=== PATIENT | female | born 1945 | race Caucasian/White ===

== ENCOUNTER 2017-04-22 07:46 | Day surgery (SDC) | payer MEDICARE, OTHER ==
[~2017-04-22 07:46] MED LIST: CHONDR SU A NA/HYALUR INTRAOC KIT (SURGICARE) ONE; EPINEPHRINE INJ/PF 1 MG/1 ML AMPULE ONE; KETOROLAC TROMETHAMINE 0.45% 4 DROP/0.4 ML DROPERETTE OS PRN; LIDOCAINE 1% INJ-PF (10 MG/ML) 30 ML SDV ONE
[2017-04-22] MEDS ORDERED: MIDAZOLAM 2 MG/2 ML INJ ONE ×2 (08:07→08:57)
[2017-04-22] MEDS ORDERED: FENTANYL CITRATE INJ/PF 100 MCG/2 ML AMPUL ONE ×2 (08:07→08:57)
[2017-04-22] MEDS: TETRACAINE HCL 0.5% OPH SOLN 2 ML OS PRN ×3 (08:18→08:59)
[2017-04-22] MEDS: TROPICAMIDE 1% OPH SOLN 3 ML OS PRN ×3 (08:19→08:43)
[2017-04-22] MEDS: CYCLOPENTOLATE 0.2%/PHENYLEPHRINE 1% OPH SOLN 2 ML OS PRN ×3 (08:19→08:43)
[2017-04-22] MEDS: BESIFLOXACIN HCL 0.6% OPH SUSP 5 ML BOTTLE OS PRN ×3 (08:20→09:20)
[2017-04-22] MEDS ORDERED: KETOROLAC TROMETHAMINE 0.45% 4 DROP/0.4 ML DROPERETTE OS ONE (10:00)
--- NOTE | 2017-04-22 18:57 | [facility] OPERATIVE REPORT E ---
[facility] Operative Report NAME: DIEGO CONSTANTINO AGE: 72Y DATE OF SURGERY: 04/22/2017 ROOM: PREOPERATIVE DIAGNOSIS: Cataract, right eye. POSTOPERATIVE DIAGNOSIS: Cataract, right eye. OPERATION: Cataract extraction with intraocular lens implant of the right eye. SURGEON: BRAYAN REYNA M.D. ANESTHESIA: Topical. PROCEDURE: After obtaining appropriate consent, the patient's right eye was prepped and draped in sterile fashion as well as the surgeon in a sterile manner and cataract surgery was started. First a paracentesis blade was used to make a small side-port incision. Viscoelastic was used to inflate the anterior chamber. Next a 2.4 mm incision was made with the paracentesis blade. A continuous capsulorrhexis incision was made using a cystotome and Utrata forceps. Following this hydrodissection was carried out to make the lens fully loose and mobile and it was rotated 90 degrees. Following this, a gcokiw-aco-uhmqfqz technique was used to phacoemulsify the lens with a CDE of 21.39. The remaining cortex was removed with irrigation/aspiration. Provisc was instilled into the capsular bag to inflate the bag. A SN60WF, 24.0 diopter lens was placed. The remaining viscoelastic material was removed with irrigation/aspiration. Following this, a 10-0 nylon suture was used to close the incision and it was found to be watertight. Vigamox was instilled in the eye and a protective shield was placed over the eye. The patient returned to the postoperative recovery in stable condition. DICTATING PHYSICIAN: BRAYAN REYNA M.D. [id number] PHY#: [id number] ID: [id number] JOB#: [id number] ACCT: [id number] cc:BRAYAN REYNA M.D. >
--- NOTE | 2017-04-22 19:02 | [facility] DISCHARGE SUMMARY E ---
[facility] Discharge Summary NAME: DIEGO CONSTANTINO AGE: 72Y ADMITTED: 04/22/2017 DISCHARGED: 04/22/2017 HISTORY OF PRESENT ILLNESS AND HOSPITAL COURSE: This is a 72-year-old female who underwent cataract extraction of the left eye. DIAGNOSIS: Cataract, left eye. HOSPITAL COURSE: She underwent surgery because she was having difficulty seeing words on the TV. DISCHARGE INSTRUCTIONS: 1. She should be on a regular diet. 2. No bending at her waist and no heavy lifting. 3. She should use Besivance, Ilevro, and Durezol at 3 p.m. and 8 p.m. and sleep with a rigid shield. 4. I will see her for her 1-day postoperative tomorrow. DICTATING PHYSICIAN: BRAYAN REYNA M.D. [id number] PHY#: [id number] ID: [id number] JOB#: [id number] ACCT: [id number] cc:BRAYAN REYNA M.D. >
== END 2017-04-22 10:20 | disposition home or self-care (01) ==
LOC: SC 07:46
PROVIDERS: ATTEND Internal Medicine
PROC: 08RJ3JZ Replacement of Right Lens with Synthetic Substitute, Percutaneous Approach (ICD-10-PCS; principal; 2017-04-22 09:00)
DX: H25.13 Age-related nuclear cataract, bilateral (principal); I10 Essential (primary) hypertension; E11.9 Type 2 diabetes mellitus without complications; E78.00 Pure hypercholesterolemia, unspecified; M19.90 Unspecified osteoarthritis, unspecified site; G47.30 Sleep apnea, unspecified; K21.9 Gastro-esophageal reflux disease without esophagitis; Z87.891 Personal history of nicotine dependence; I25.2 Old myocardial infarction; Z88.5 Allergy status to narcotic agent; Z88.8 Allergy status to other drugs, medicaments and biological substances; Z79.82 Long term (current) use of aspirin; Z79.899 Other long term (current) drug therapy
CPT/HCPCS: 66984; 82962; V2632; J2250; J3490 ×2; A9270; J0171; J3010; 142

== ENCOUNTER 2017-05-13 08:14 | Day surgery (SDC) | payer MEDICARE, OTHER ==
[~2017-05-13 08:14] MED LIST changes: -CHONDR SU A NA/HYALUR INTRAOC KIT (SURGICARE) ONE; -EPINEPHRINE INJ/PF 1 MG/1 ML AMPULE ONE; +KETOROLAC TROMETHAMINE 0.45% 4 DROP/0.4 ML DROPERETTE OD PRN; -KETOROLAC TROMETHAMINE 0.45% 4 DROP/0.4 ML DROPERETTE OS PRN; -LIDOCAINE 1% INJ-PF (10 MG/ML) 30 ML SDV ONE
[2017-05-13] MEDS: TROPICAMIDE 1% OPH SOLN 3 ML OD PRN ×3 (08:37→08:57)
[2017-05-13] MEDS: BESIFLOXACIN HCL 0.6% OPH SUSP 5 ML BOTTLE OD PRN ×4 (08:37→09:41)
[2017-05-13] MEDS: CYCLOPENTOLATE 0.2%/PHENYLEPHRINE 1% OPH SOLN 2 ML OD PRN ×3 (08:37→08:57)
[2017-05-13] MEDS: TETRACAINE HCL 0.5% OPH SOLN 2 ML OD PRN ×3 (08:38→09:14)
[2017-05-13] MEDS ORDERED: LIDOCAINE 1% INJ-PF (10 MG/ML) 30 ML SDV ONE (08:42)
[2017-05-13] MEDS ORDERED: CHONDR SU A NA/HYALUR INTRAOC KIT (SURGICARE) ONE (08:42)
[2017-05-13] MEDS ORDERED: EPINEPHRINE INJ/PF 1 MG/1 ML AMPULE ONE (08:42)
[2017-05-13] MEDS ORDERED: ONDANSETRON HCL INJ/PF 4 MG/2 ML SDV ONE (09:05)
[2017-05-13] MEDS ORDERED: MIDAZOLAM 2 MG/2 ML INJ ONE (09:05)
--- NOTE | 2017-05-16 20:22 | [facility] OPERATIVE REPORT E ---
[facility] Operative Report NAME: DIEGO CONSTANTINO AGE: 72Y DATE OF SURGERY: 05/13/2017 ROOM: PREOPERATIVE DIAGNOSIS: CATARACT, RIGHT EYE. POSTOPERATIVE DIAGNOSIS: CATARACT, RIGHT EYE. OPERATION: Cataract extraction with intraocular lens implant of the right eye. SURGEON: BRAYAN REYNA M.D. ANESTHESIA: Topical. PROCEDURE: After obtaining appropriate consent, the patient's right eye was prepped and draped in sterile fashion as well as the surgeon in a sterile manner and cataract surgery was started. First a paracentesis blade was used to make a small side-port incision. Viscoelastic was used to inflate the anterior chamber. Next a 2.4 mm incision was made with the paracentesis blade. A continuous capsulorrhexis incision was made using a cystotome and Utrata forceps. Following this hydrodissection was carried out to make the lens fully loose and mobile and it was rotated 90 degrees. Following this, a xgkwrs-wwa-eyibntq technique was used to phacoemulsify the lens with a CDE of *------*. The remaining cortex was removed with irrigation/aspiration. Provisc was instilled into the capsular bag to inflate the bag. A SN60WF, 24.0 diopter lens was placed. The remaining viscoelastic material was removed with irrigation/aspiration. Following this, a 10-0 nylon suture was used to close the incision and it was found to be watertight. Vigamox was instilled in the eye and a protective shield was placed over the eye. The patient returned to the postoperative recovery in stable condition. DICTATING PHYSICIAN: BRAYAN REYNA M.D. [id number] PHY#: [id number] ID: [id number] JOB#: [id number] ACCT: [id number] cc:BRAYAN REYNA M.D. >
--- NOTE | 2017-05-16 20:22 | DISCHARGE SUMMARY E ---
Discharge Summary NAME: DIEGO CONSTANTINO : 1945 AGE: 72Y ADMITTED: 05/13/2017 DISCHARGED: 05/13/2017 REASON FOR ADMISSION: This is a 72-year-old patient who underwent cataract extraction of the right eye. DIAGNOSIS: Cataract, right eye. HOSPITAL COURSE AND DISCHARGE INSTRUCTIONS: The patient underwent surgery because he was having difficulty seeing medicine bottles and words on the TV. He should be on a regular diet. No bending at his waist. No heavy lifting. He should use the Besivance, Ilevro, and Durezol at 3:00 p.m. at 8:00 p.m. and sleep with a rigid shield, and I will see him for his 1-day postoperative. DICTATING PHYSICIAN: BRAYAN REYNA M.D. [id number] PHY#: [id number] ID: [id number] JOB#: [id number] ACCT: [id number] cc:BRAYAN REYNA M.D. >
== END 2017-05-13 10:24 | disposition home or self-care (01) ==
LOC: SC 08:14
PROVIDERS: ATTEND Internal Medicine
PROC: 08RJ3JZ Replacement of Right Lens with Synthetic Substitute, Percutaneous Approach (ICD-10-PCS; principal; 2017-05-13 09:30)
DX: H25.11 Age-related nuclear cataract, right eye (principal)
CPT/HCPCS: 66984; 82962; V2632; J2250; J3490 ×2; A9270; J0171; J2405; 142

== ENCOUNTER 2017-06-28 15:19 | Emergency (ER) | payer MEDICARE, OTHER ==
[2017-06-28] MEDS ORDERED: ACETAMINOPHEN 325 MG TABLET PO ONE (16:55)
--- NOTE | 2017-06-28 16:56 | ER Document Report ---
ED Medical Screen (RME) - General Chief Complaint: Cold Symptoms Stated Complaint: COLD Time Seen by Provider: 06/28/17 16:52 Mode of Arrival: Ambulatory Information source: Patient Notes: 72-year-old female presents to ED for plan of cough congestion sore throat fever of 100.1 in the ED. She is a former smoker she is. She has an extensive long and cardiac history to include CABGs 2 within the last year. Her lungs are diminished but clear. Patient is able to speak in full sentences. I have greeted and performed a rapid initial assessment of this patient. A comprehensive ED assessment and evaluation of the patient, analysis of test results and completion of medical decision making process will be conducted by an additional ED providers. TRAVEL OUTSIDE OF THE [place] IN LAST 30 DAYS: No - Related Data Allergies/Adverse Reactions: codeine [Codeine] Allergy (Verified 06/28/17 16:51) VOMITING dexlansoprazole [From Dexilant] Allergy (Verified 06/28/17 16:51) Facial swelling Shellfish * [Shellfish] Allergy (Verified 06/28/17 16:51) Swelling of hands and/or feet Wxtmppn-Fdo-Spl Reductase Inhibitor Allergy (Verified 06/28/17 16:51) Stiffness in joints clopidogrel [From Plavix] Adverse Reaction (Intermediate, Verified 06/28/17 16: 51) LETHARGIC lisinopril Adverse Reaction (Verified 06/28/17 16:51) nateglinide [From Starlix] Adverse Reaction (Verified 06/28/17 16:51) VOMITING Past Medical History - Social History Chew tobacco use (# tins/day): No Frequency of alcohol use: None Drug Abuse: None - Past Medical History Cardiac Medical History: Reports: Hx Heart Attack - 2016, Hx Hypercholesterolemia, Hx Hypertension Pulmonary Medical History: Denies: Hx Asthma Neurological Medical History: Denies: Hx Cerebrovascular Accident, Hx Seizures Renal/ Medical History: Reports: Hx Kidney Stones. Denies: Hx Peritoneal Dialysis GI Medical History: Reports: Hx Gastroesophageal Reflux Disease, Hx Hiatal Hernia. Denies: Hx Hepatitis, Hx Ulcer Infectious Medical History: Denies: Hx Hepatitis Past Surgical History: Reports: Hx Appendectomy, Hx Cholecystectomy, Hx Genitourinary Surgery - Prolapsed bladder, Hx Open Heart Surgery - 2016, Hx Tonsillectomy, Hx Tubal Ligation. Denies: Hx Mastectomy, Hx Pacemaker - Immunizations Hx Diphtheria, Pertussis, Tetanus Vaccination: No - Pt unsure Physical Exam - Vital signs Vitals: Temp Pulse Resp BP Pulse Ox 100.1 F 85 18 196/75 H 96 06/28/17 15:37 06/28/17 15:37 06/28/17 15:37 06/28/17 15:37 06/28/17 15:37 Course - Vital Signs Vital signs: Temp Pulse Resp BP Pulse Ox 100.1 F 85 18 196/75 H 96 06/28/17 15:37 06/28/17 15:37 06/28/17 15:37 06/28/17 15:37 06/28/17 15:37
--- NOTE | 2017-06-28 17:27 | RADIOLOGY REPORT (SQ) ---
EXAM DESCRIPTION: CHEST PA/LAT COMPLETED DATE/TIME: 06/28/2017 5:16 pm REASON FOR STUDY: Cough congestion and fever COMPARISON: 09/06/2015 EXAM PARAMETERS: NUMBER OF VIEWS: two views TECHNIQUE: Digital Frontal and Lateral radiographic views of the chest acquired. RADIATION DOSE: NA LIMITATIONS: none FINDINGS: LUNGS AND PLEURA: No opacities, masses or pneumothorax. No pleural effusion. MEDIASTINUM AND HILAR STRUCTURES: No masses or contour abnormalities. HEART AND VASCULAR STRUCTURES: Heart normal size. No evidence for failure. BONES: No acute findings. HARDWARE: Sternotomy wires, graft markers. OTHER: No other significant finding. IMPRESSION: NO SIGNIFICANT RADIOGRAPHIC FINDING IN THE CHEST. TECHNICAL DOCUMENTATION: JOB ID: [id number] [employer]- All Rights Reserved
[2017-06-28 19:36] LABS: ANION GAP 19 (5-19); BLOOD UREA NITROGEN 18 mg/dL (7-20); CALCIUM 9.5 mg/dL (8.4-10.2); CARBON DIOXIDE 16 mmol/L (22-30); CHLORIDE 103 mmol/L (98-107); CREATININE RESULT 1.11 mg/dL (0.52-1.25); GLUCOSE 139 mg/dL (75-110); POTASSIUM 4.4 mmol/L (3.6-5.0); SODIUM 137.6 mmol/L (137-145)
[2017-06-28] MEDS ORDERED: NORMAL SALINE 1000 ML 1,000 ML IV ONE (19:47)
[2017-06-28] MEDS ORDERED: KETOROLAC TROMETHAMINE INJ/PF 30 MG/1 ML SDV IV ONE (19:48)
[2017-06-28] MEDS ORDERED: METOCLOPRAMIDE HCL INJ/PF 10 MG/2 ML SDV IV ONE (19:48)
--- NOTE | 2017-06-28 19:51 | ER Document Report ---
ED General - General Chief Complaint: Cold Symptoms Stated Complaint: COLD Time Seen by Provider: 06/28/17 16:52 Mode of Arrival: Ambulatory Notes: Patient is a 72-year-old female who presents with 3 days of cough, sinus pressure, body aches, headache, and fever. Patient is here with her who is the same symptoms. Patient reports that she has been trying over-the- counter remedies without any significant improvement. Nothing is noted to worsen her symptoms. She has not seen a primary care doctor regarding today's concerns. She denies a recent history of similar symptoms. She did receive her influenza vaccination this year. She has not had any vomiting but notes that she has had some loose stools. She denies any chest pain, shortness of breath, focal abdominal pain or vomiting. No dysuria. TRAVEL OUTSIDE OF THE [place] IN LAST 30 DAYS: No - Related Data Allergies/Adverse Reactions: codeine [Codeine] Allergy (Verified 06/28/17 16:51) VOMITING dexlansoprazole [From Dexilant] Allergy (Verified 06/28/17 16:51) Facial swelling Shellfish * [Shellfish] Allergy (Verified 06/28/17 16:51) Swelling of hands and/or feet Ypmovgr-Gyo-Prt Reductase Inhibitor Allergy (Verified 06/28/17 16:51) Stiffness in joints clopidogrel [From Plavix] Adverse Reaction (Intermediate, Verified 06/28/17 16: 51) LETHARGIC lisinopril Adverse Reaction (Verified 06/28/17 16:51) nateglinide [From Starlix] Adverse Reaction (Verified 06/28/17 16:51) VOMITING Past Medical History - General Information source: Patient - Social History Smoking Status: Former Smoker Chew tobacco use (# tins/day): No Frequency of alcohol use: None Drug Abuse: None Lives with: Spouse/Significant other Family History: Reviewed & Not Pertinent Patient has suicidal ideation: No Patient has homicidal ideation: No - Past Medical History Cardiac Medical History: Reports: Hx Heart Attack - 2016, Hx Hypercholesterolemia, Hx Hypertension Pulmonary Medical History: Denies: Hx Asthma Neurological Medical History: Denies: Hx Cerebrovascular Accident, Hx Seizures Renal/ Medical History: Reports: Hx Kidney Stones. Denies: Hx Peritoneal Dialysis GI Medical History: Reports: Hx Gastroesophageal Reflux Disease, Hx Hiatal Hernia. Denies: Hx Hepatitis, Hx Ulcer Infectious Medical History: Denies: Hx Hepatitis Past Surgical History: Reports: Hx Appendectomy, Hx Cholecystectomy, Hx Genitourinary Surgery - Prolapsed bladder, Hx Open Heart Surgery - 2016, Hx Tonsillectomy, Hx Tubal Ligation. Denies: Hx Mastectomy, Hx Pacemaker - Immunizations Hx Diphtheria, Pertussis, Tetanus Vaccination: No - Pt unsure Hx Pneumococcal Vaccination: 07/26/14 Review of Systems - Review of Systems Notes: Constitutional: Positive for fever. HENT: Negative for sore throat. Eyes: Negative for visual changes. Cardiovascular: Negative for chest pain. Respiratory: Negative for shortness of breath. Positive for cough Gastrointestinal: Positive for diarrhea Genitourinary: Negative for dysuria. Musculoskeletal: Negative for back pain. Skin: Negative for rash. Neurological: Negative for headaches, weakness or numbness. 10 point ROS negative except as marked above and in HPI. Physical Exam - Vital signs Vitals: Temp Pulse Resp BP Pulse Ox 100.1 F 85 18 196/75 H 96 06/28/17 15:37 06/28/17 15:37 06/28/17 15:37 06/28/17 15:37 06/28/17 15:37 Interpretation: Hypertensive Notes: PHYSICAL EXAMINATION: GENERAL: Well-appearing, well-nourished and in no acute distress. HEAD: Atraumatic, normocephalic. EYES: Pupils equal round and reactive to light, extraocular movements intact, sclera anicteric, conjunctiva are normal. ENT: nares patent, oropharynx clear without exudates. Moderately dry mucous membranes. NECK: Normal range of motion, supple without lymphadenopathy LUNGS: Breath sounds clear to auscultation bilaterally and equal. No wheezes rales or rhonchi. HEART: Regular rate and rhythm without murmurs ABDOMEN: Soft, nontender, normoactive bowel sounds. No guarding, no rebound. No masses appreciated. EXTREMITIES: Normal range of motion, no pitting or edema. No cyanosis. NEUROLOGICAL: No focal neurological deficits. Moves all extremities spontaneously and on command. PSYCH: Normal mood, normal affect. SKIN: Warm, Dry, normal turgor, no rashes or lesions noted. Course - Re-evaluation Re-evalutation: 06/28/17 19:49 Patient presents with cough, nausea, sinus pressure, and fever at home consistent with a diagnosis of influenza. Influenza testing is positive. Patient is overall well in appearance, in no acute distress. Lung sounds clear. Able to tolerate oral intake without difficulty here in the emergency department. After risks and benefits conversation with the patient regarding the use of Tamiflu, they have elected to use supportive care without Tamiflu based on concerns about lack of efficacy as well as the side effect profile. BMP did show a moderately decreased bicarb. Venous blood gas was obtained and did not demonstrate any evidence of an acidosis. Suspect this was secondary to dehydration and IV fluids have been administered. At this time will discharge with return precautions and follow-up recommendations. Verbal discharge instructions given a the bedside and opportunity for questions given. Medication warnings reviewed. Patient is in agreement with this plan and has verbalized understanding of return precautions and the need for primary care follow-up in the next 24-72 hours. 06/28/17 19:49 - Vital Signs Vital signs: Temp Pulse Resp BP Pulse Ox 99.4 F 85 18 137/61 H 94 06/28/17 21:02 06/28/17 15:37 06/28/17 15:37 06/28/17 21:01 06/28/17 21:02 - Laboratory Result Diagrams: 06/28/17 18:55 Laboratory results interpreted by me: 06/28/17 18:55 Carbon Dioxide 16 L Est GFR ( Amer) 58 L Est GFR (Non-Af Amer) 48 L Glucose 139 H - Diagnostic Test Radiology reviewed: Image reviewed, Reports reviewed Radiology results interpreted by me: 06/29/17 04:17 Chest x-ray: No acute infiltrate Discharge - Discharge Clinical Impression: Influenza A Condition: Good Disposition: HOME, SELF-CARE Additional Instructions: You have influenza. There is no treatment that is effective for this diagnosis other than supportive care at home. This includes drinking plenty of fluids, using Tylenol or ibuprofen as needed for fever and discomfort. Please follow closely with you primary care physician the next 1-2 days regarding this diagnosis. Return to the emergency department immediately if you began to have persistent vomiting prevents you from being able to keep fluids down for more than 12 hours, you pass out, you began having difficulty breathing, you become confused, or you have any other symptoms that are worrisome to you.
[2017-06-28 20:20] LABS: VENOUS BLOOD BASE EXCESS -4.7 mmol/L; VENOUS BLOOD HCO3 20.1 mmol/L (20-32); VENOUS BLOOD PCO2 36.6 mmHg (35-63); VENOUS BLOOD PH 7.36 (7.30-7.42)
[2017-06-28 21:13] VITALS: BP 137/61
== END 2017-06-28 21:13 | disposition home or self-care (01) ==
LOC: ER 15:19
DX: J09.X2 Influenza due to identified novel influenza A virus with other respiratory manifestations (principal); R05 Cough; M79.1 Myalgia; R51 Headache; R50.9 Fever, unspecified; Z87.891 Personal history of nicotine dependence; I25.2 Old myocardial infarction
CPT/HCPCS: 99283; 96361; 96374; 96375; 36415; 80048; 82803; 87804; 71020; A9270; J1885; J2765; J7030

== ENCOUNTER 2017-07-01 22:18 | Emergency (ER) | payer MEDICARE, OTHER ==
[2017-07-01 23:34] LABS: VENOUS BLOOD BASE EXCESS -4.5 mmol/L; VENOUS BLOOD HCO3 19.7 mmol/L (20-32); VENOUS BLOOD PCO2 33.8 mmHg (35-63); VENOUS BLOOD PH 7.38 (7.30-7.42)
[2017-07-01 23:36] LABS: ABSOLUTE EOSINOPHILS # (AUTO) 0.1 10^3/uL (0.0-0.6); ABSOLUTE LYMPHOCYTES (AUTO) 1.1 10^3/uL (0.5-4.7); ABSOLUTE MONOCYTES (AUTO) 0.5 10^3/uL (0.1-1.4); ABSOLUTE NEUT (AUTO) 4.2 10^3/uL (1.7-8.2); BASOPHILS % (AUTO) 0.5 % (0-2); EOSINOPHILS % (AUTO) 1.1 % (0-6); HEMATOCRIT 38.2 % (36.0-47.0); HEMOGLOBIN 12.8 g/dL (12.0-15.5); HGB HCT DIFFERENCE 0.2; LYMPHOCYTES % (AUTO) 19.1 % (13-45); MEAN CORPUSCULAR HGB CONC 33.6 g/dL (32.0-36.0); MEAN CORPUSCULAR VOLUME 95 fl (80-97); MONOCYTES % (AUTO) 8.1 % (3-13); RED BLOOD COUNT 4.02 10^6/uL (3.72-5.28); RED CELL DISTRIBUTION WIDTH 14.9 % (11.5-14.0); SEGMENTED NEUTROPHILS % (AUTO) 71.2 % (42-78)
--- NOTE | 2017-07-01 23:36 | RADIOLOGY REPORT (SQ) ---
EXAM DESCRIPTION: CHEST PA/LAT CLINICAL HISTORY: 72 years, Female, short of breath COMPARISON: 06/28/2017. NUMBER OF VIEWS: Two TECHNIQUE: PA and lateral LIMITATIONS: None. FINDINGS: Mild hyperinflation, prominent interstitium, median sternotomy, normal cardiac silhouette size, upper abdominal clips, and intact bony thorax. IMPRESSION: No acute cardiopulmonary findings. 2011 [employer]- All Rights Reserved
[2017-07-01 23:52] LABS: ANION GAP 14 (5-19); BLOOD UREA NITROGEN 13 mg/dL (7-20); CALCIUM 9.2 mg/dL (8.4-10.2); CARBON DIOXIDE 19 mmol/L (22-30); CHLORIDE 109 mmol/L (98-107); CREATININE RESULT 1.01 mg/dL (0.52-1.25); GLUCOSE 111 mg/dL (75-110); POTASSIUM 4.2 mmol/L (3.6-5.0); SODIUM 141.6 mmol/L (137-145)
--- NOTE | 2017-07-02 00:29 | ER Document Report ---
ED General - General Chief Complaint: Shortness Of Breath Stated Complaint: DIFFICULTY BREATHING Time Seen by Provider: 07/01/17 22:53 Notes: Patient is a 72-year-old female who presents with ongoing cough, shortness of breath, nasal congestion and sinus pressure. I saw the patient 2 days ago and at that time she was positive for influenza A. She states that her symptoms are unchanged since that time. She was worried by the fact that she continues to feel quite fatigued, has a persistent cough and often feels short of breath. She denies any vomiting or ongoing diarrhea. No syncope. Notes that she continues to go to tolerate fluids without difficulty. She has not yet followed up with her primary care doctor. She continues to have fevers. She has been treating her symptoms with Tylenol and ibuprofen with some improvement. TRAVEL OUTSIDE OF THE [place] IN LAST 30 DAYS: No - Related Data Allergies/Adverse Reactions: atorvastatin [From Lipitor] Allergy (Verified 07/01/17 22:20) codeine [Codeine] Allergy (Verified 07/01/17 22:20) VOMITING dexlansoprazole [From Dexilant] Allergy (Verified 07/01/17 22:20) Facial swelling Shellfish * [Shellfish] Allergy (Verified 07/01/17 22:20) Swelling of hands and/or feet Ylsykae-Yru-Ojc Reductase Inhibitor Allergy (Verified 07/01/17 22:20) Stiffness in joints clopidogrel [From Plavix] Adverse Reaction (Intermediate, Verified 07/01/17 22: 20) LETHARGIC lisinopril Adverse Reaction (Verified 07/01/17 22:20) nateglinide [From Starlix] Adverse Reaction (Verified 07/01/17 22:20) VOMITING Past Medical History - General Information source: Patient - Social History Smoking Status: Former Smoker Chew tobacco use (# tins/day): No Frequency of alcohol use: None Drug Abuse: None Lives with: Family Family History: Reviewed & Not Pertinent Patient has suicidal ideation: No Patient has homicidal ideation: No - Past Medical History Cardiac Medical History: Reports: Hx Heart Attack - 2016, Hx Hypercholesterolemia, Hx Hypertension Pulmonary Medical History: Denies: Hx Asthma Neurological Medical History: Denies: Hx Cerebrovascular Accident, Hx Seizures Renal/ Medical History: Reports: Hx Kidney Stones. Denies: Hx Peritoneal Dialysis GI Medical History: Reports: Hx Gastroesophageal Reflux Disease, Hx Hiatal Hernia. Denies: Hx Hepatitis, Hx Ulcer Infectious Medical History: Denies: Hx Hepatitis Past Surgical History: Reports: Hx Appendectomy, Hx Cholecystectomy, Hx Genitourinary Surgery - Prolapsed bladder, Hx Open Heart Surgery - 2016, Hx Tonsillectomy, Hx Tubal Ligation. Denies: Hx Mastectomy, Hx Pacemaker - Immunizations Hx Diphtheria, Pertussis, Tetanus Vaccination: No - Pt unsure Hx Pneumococcal Vaccination: 07/26/14 Review of Systems - Review of Systems Notes: Constitutional: Positive for fever. HENT: Negative for sore throat. Eyes: Negative for visual changes. Cardiovascular: Negative for chest pain. Respiratory: Positive for cough and shortness of breath Gastrointestinal: Negative for abdominal pain, vomiting or diarrhea. Genitourinary: Negative for dysuria. Musculoskeletal: Negative for back pain. Skin: Negative for rash. Neurological: Negative for headaches, weakness or numbness. 10 point ROS negative except as marked above and in HPI. Physical Exam - Vital signs Vitals: Temp Pulse Resp BP 98.4 F 76 18 153/82 H 07/01/17 22:25 07/01/17 22:25 07/01/17 22:25 07/01/17 22:25 Interpretation: Hypertensive Notes: PHYSICAL EXAMINATION: GENERAL: Appears somewhat uncomfortable but in no distress. HEAD: Atraumatic, normocephalic. EYES: Pupils equal round and reactive to light, extraocular movements intact, sclera anicteric, conjunctiva are normal. ENT: nares patent, oropharynx clear without exudates. Moist mucous membranes. NECK: Normal range of motion, supple without lymphadenopathy LUNGS: Breath sounds clear to auscultation bilaterally and equal. Rhonchi in all lung quick HEART: Regular rate and rhythm without murmurs ABDOMEN: Soft, nontender, normoactive bowel sounds. No guarding, no rebound. No masses appreciated. EXTREMITIES: Normal range of motion, no pitting or edema. No cyanosis. NEUROLOGICAL: No focal neurological deficits. Moves all extremities spontaneously and on command. PSYCH: Normal mood, normal affect. SKIN: Warm, Dry, normal turgor, no rashes or lesions noted. Course - Re-evaluation Re-evalutation: 07/02/17 00:27 Patient presents with cough, vomiting, diarrhea, and fever at home consistent with a diagnosis of influenza. Patient was positive for influenza on the prior time that I evaluated her. Chest x-ray remains unremarkable. Patient is overall well in appearance, in no acute distress. Lungs with diffusely rhonchorous sounds but otherwise appropriate air movement. Able to tolerate oral intake without difficulty here in the emergency department. We have again discussed the option of Tamiflu and she has again declined given its lack of efficacy and risk of side effect profile. Patient has been ambulated on pulse oximeter saturations between 90 and 100%. She has tolerated oral intake without any difficulty. Repeat labs remain on concerning. At this time will discharge with return precautions and follow-up recommendations. Verbal discharge instructions given a the bedside and opportunity for questions given. Medication warnings reviewed. Patient is in agreement with this plan and has verbalized understanding of return precautions and the need for primary care follow-up in the next 24-72 hours. - Vital Signs Vital signs: Temp Pulse Resp BP Pulse Ox 98 F 76 23 H 175/70 H 95 07/02/17 00:01 07/01/17 22:25 07/02/17 00:01 07/02/17 00:01 07/02/17 00:01 - Laboratory Result Diagrams: 07/01/17 23:10 07/01/17 23:10 Laboratory results interpreted by me: 07/01/17 07/01/17 07/01/17 23:10 23:10 23:10 RDW 14.9 H VBG pCO2 33.8 L VBG HCO3 19.7 L Chloride 109 H Carbon Dioxide 19 L Est GFR (Non-Af Amer) 54 L Glucose 111 H - Diagnostic Test Radiology reviewed: Image reviewed, Reports reviewed Radiology results interpreted by me: 07/02/17 00:28 Chest x-ray: No acute infiltrate Discharge - Discharge Clinical Impression: Influenza, Shortness of breath Condition: Good Disposition: HOME, SELF-CARE Additional Instructions: You have influenza. There is no treatment that is effective for this diagnosis other than supportive care at home. This includes drinking plenty of fluids, using Tylenol or ibuprofen as needed for fever and discomfort. Please follow closely with you primary care physician the next 1-2 days regarding this diagnosis. Return to the emergency department immediately if you began to have persistent vomiting prevents you from being able to keep fluids down for more than 12 hours, you pass out, you began having difficulty breathing, you become confused, or you have any other symptoms that are worrisome to you. Referrals: KAYCEE SHIN PA-C [Primary Care Provider] - Follow up as needed
[2017-07-02 01:09] VITALS: BP 175/70
== END 2017-07-02 01:00 | disposition home or self-care (01) ==
LOC: ER 22:18
DX: J09.X2 Influenza due to identified novel influenza A virus with other respiratory manifestations (principal); R06.02 Shortness of breath; R05 Cough; R09.81 Nasal congestion; R51 Headache; R53.83 Other fatigue; Z87.891 Personal history of nicotine dependence; I25.2 Old myocardial infarction
CPT/HCPCS: 36415; 71020; 80048; 82803; 85025; 99285

== ENCOUNTER 2018-12-23 19:20 | Emergency (ER) | payer MEDICARE, OTHER ==
[2018-12-23] MEDS ORDERED: CETIRIZINE 10 MG TABLET PO ONE (20:36)
--- NOTE | 2018-12-23 20:44 | ER Document Report ---
HPI - HPI Time Seen by Provider: 12/23/18 20:28 Pain Level: 3 Context: Patient is a 73-year-old female who presents the emergency department with a chief complaint of a sore throat and a cough. She has had her cough for the past week. She also states that her ears hurt and it is hard for her to swallow, but she is able to swallow. She denies any fever. She states that she is coughing up some green mucus. She denies any shortness of breath, difficulty breathing, or hemoptysis. She has not seen her primary care provider in regards to this issue. Patient has diabetes, hypertension, and GERD. She currently takes aspirin, Glyxambi, metoprolol, multivitamin, omeprazole, hydrochlorothiazide, and a stool softener. - CONSTITUTIONAL Constitutional: DENIES: Fever, Chills - EENT EENT: REPORTS: Sore Throat, Ear Pain - Bilateral, Nasal Drainage-Clear, Congestion - NEURO Neurology: REPORTS: Headache. DENIES: Weakness - CARDIOVASCULAR Cardiovascular: DENIES: Chest pain - RESPIRATORY Respiratory: REPORTS: Coughing. DENIES: Trouble Breathing - GASTROINTESTINAL Gastrointestinal: DENIES: Abdominal Pain, Nausea, Patient vomiting, Diarrhea - REPRODUCTIVE Reproductive: DENIES: : - MUSCULOSKELETAL Musculoskeletal: DENIES: Extremity pain, Back Pain, Neck Pain, Swelling - DERM Skin Color: Normal Skin Problems: None Past Medical History - Social History Smoking Status: Never Smoker Family History: Reviewed & Not Pertinent - Past Medical History Cardiac Medical History: Reports: Hx Heart Attack - 2016, Hx Hypercholesterolemia, Hx Hypertension Pulmonary Medical History: Denies: Hx Asthma Neurological Medical History: Denies: Hx Cerebrovascular Accident, Hx Seizures Renal/ Medical History: Reports: Hx Kidney Stones. Denies: Hx Peritoneal Dialysis GI Medical History: Reports: Hx Gastroesophageal Reflux Disease, Hx Hiatal Hernia. Denies: Hx Hepatitis, Hx Ulcer Infectious Medical History: Denies: Hx Hepatitis Past Surgical History: Reports: Hx Appendectomy, Hx Cholecystectomy, Hx Genitou rinary Surgery - Prolapsed bladder, Hx Open Heart Surgery - 2016, Hx Tonsillectomy, Hx Tubal Ligation. Denies: Hx Mastectomy, Hx Pacemaker - Immunizations Hx Diphtheria, Pertussis, Tetanus Vaccination: No - Pt unsure Hx Pneumococcal Vaccination: 07/26/14 Vertical Provider Document - CONSTITUTIONAL Agree With Documented VS: Yes Exam Limitations: No Limitations General Appearance: No Apparent Distress - INFECTION CONTROL TRAVEL OUTSIDE OF THE [place] IN LAST 30 DAYS: No - HEENT HEENT: Atraumatic, Normocephalic, PERRLA, Pharyngeal Exudate, Pharyngeal Tenderness, Pharyngeal Erythema, Tympanic Membrane Red. negative: Conjuctival Injection, Tympanic Membrane Bulging - NECK Neck: Normal Inspection, Supple - RESPIRATORY Respiratory: Breath Sounds Normal, No Respiratory Distress, Chest Non-Tender - CARDIOVASCULAR Cardiovascular: Regular Rate, Regular Rhythm Pulses: Normal: Radial - GI/ABDOMEN Gastrointestinal: Abdomen Soft - MUSCULOSKELETAL/EXTREMETIES Musculoskeletal/Extremeties: FROM - NEURO Level of Consciousness: Awake, Alert, Appropriate - DERM Integumentary: Warm, Dry Course - Re-evaluation Re-evalutation: 12/23/18 20:44 Due to the patient's duration of her cough, she will be sent for a chest x-ray. 12/23/18 21:29 Patient's chest x-ray is negative for any acute findings. She does not have pneumonia. I have instructed the patient to take cetirizine daily. She states that she was on a nasal spray, but does not remember which nasal spray she was on. She was on Flonase for a little while, but her primary care provider took her off Flonase. I have advised her to follow-up with her primary care provider on Wednesday. I have also advised her to take cetirizine to help with her cough and congestion. I have also advised her to take Cepacol to help with her throat pain. Rapid strep is negative. It was sent for culture. She is in agreement with this plan. Verbal discharge instructions were given to the patient. They verbalized understanding. They are stable for discharge. - Vital Signs Vital signs: Temp Pulse Resp BP Pulse Ox 97.6 F 69 18 154/84 H 94 12/23/18 19:27 12/23/18 19:27 12/23/18 19:27 12/23/18 19:27 12/23/18 19:27 Discharge - Discharge Clinical Impression: Cough, Sore throat Condition: Stable Disposition: HOME, SELF-CARE Instructions: Sore Throat ([facility]) Additional Instructions: You were seen today in the emergency department for a cough and sore throat. Your chest x-ray was normal. The rapid strep test was negative. If the culture comes back positive, you will be called. Your symptoms are most consistent with an upper respiratory viral infection. Please take acetaminophen 1000 mg and ibuprofen 600 mg every 6 hours as needed for any body aches or fever. You have been given cetirizine, medication to help with your runny nose. Take 1 tablet every day while you have symptoms. Since your primary care does not want you on Flonase, please see if he can get the nasal spray you were on from them. You can use Cepacol or warm tea with honey to help with your sore throat. If you develop a fever greater than 100.4 F while on ibuprofen and acetaminophen, develop shortness of breath, difficulty breathing, or any symptoms that are worrisome to you, please return to the emergency department. Prescriptions: Cetirizine HCl [All Day Allergy] 10 mg PO DAILY #30 tablet Referrals: KAYCEE SHIN PA-C [Primary Care Provider] - 12/26/18
--- NOTE | 2018-12-23 21:11 | RADIOLOGY REPORT (SQ) ---
XR CHEST 2 VIEWS CLINICAL STATEMENT: cough x 1 week COMPARISON: 07/01/2017. FINDINGS: Status post median sternotomy. Cardiomediastinal silhouette is within normal limits. There is no focal lung consolidation or pleural effusion. No evidence of pulmonary edema or pneumothorax. IMPRESSION: No acute cardiopulmonary disease.
[2018-12-24 01:53] VITALS: BP 148/80
== END 2018-12-23 22:40 | disposition home or self-care (01) ==
LOC: ER 19:20
DX: J02.9 Acute pharyngitis, unspecified (principal); R05 Cough; R51 Headache; H92.03 Otalgia, bilateral; I10 Essential (primary) hypertension; K21.9 Gastro-esophageal reflux disease without esophagitis; E11.9 Type 2 diabetes mellitus without complications; Z79.84 Long term (current) use of oral hypoglycemic drugs; Z79.899 Other long term (current) drug therapy
CPT/HCPCS: 99283; 87070; 87880; 71046; A9270

== ENCOUNTER 2019-06-29 03:56 | Emergency (ER) | payer MEDICARE, OTHER ==
[2019-06-29 04:39] LABS: ABSOLUTE BASOPHILS # (AUTO) 0.1 10^3/uL (0.0-0.2); ABSOLUTE EOSINOPHILS # (AUTO) 0.2 10^3/uL (0.0-0.6); ABSOLUTE LYMPHOCYTES (AUTO) 1.9 10^3/uL (0.5-4.7); ABSOLUTE MONOCYTES (AUTO) 0.7 10^3/uL (0.1-1.4); ABSOLUTE NEUT (AUTO) 6.2 10^3/uL (1.7-8.2); BASOPHILS % (AUTO) 1.1 % (0-2); EOSINOPHILS % (AUTO) 2.3 % (0-6); HEMATOCRIT 42.1 % (36.0-47.0); HEMOGLOBIN 14.3 g/dL (12.0-15.5); LYMPHOCYTES % (AUTO) 20.7 % (13-45); MEAN CORPUSCULAR HEMOGLOBIN 32.3 pg (27.0-33.4); MEAN CORPUSCULAR VOLUME 95 fl (80-97); MONOCYTES % (AUTO) 7.3 % (3-13); PLATELET COUNT 270 10^3/uL (150-450); RED BLOOD COUNT 4.43 10^6/uL (3.72-5.28); RED CELL DISTRIBUTION WIDTH 13.8 % (11.5-14.0); SEGMENTED NEUTROPHILS % (AUTO) 68.6 % (42-78); TOTAL CELLS COUNTED % (AUTO) 100 %
[2019-06-29] MEDS ORDERED: ASPIRIN 81 MG TABLET, CHEWABLE PO ONE ×2 (04:45→04:58)
[2019-06-29] MEDS ORDERED: ONDANSETRON HCL INJ/PF 4 MG/2 ML SDV IV ONE (04:45)
--- NOTE | 2019-06-29 04:47 | ER Document Report ---
ED Medical Screen (RME) - General Chief Complaint: Chest Pain Stated Complaint: CHEST PAIN Time Seen by Provider: 06/29/19 04:41 Primary Care Provider: KAYCEE SHIN PA-C [Primary Care Provider] - Follow up as needed Notes: 74-year-old female with chief complaint of chest pain that started just prior to arrival while she was doing housework. Pain started in the center of her chest and radiated out to both arms. She states she felt a head mantilla and got nauseated. She reports current nausea, chest pain is almost resolved, denies abdominal pain, denies shortness of breath, denies fever. Past medical history includes CABG, follows with [facility] cardiology. TRAVEL OUTSIDE OF THE U[place] IN LAST 30 DAYS: No - Related Data Allergies/Adverse Reactions: atorvastatin [From Lipitor] Allergy (Verified 12/23/18 19:23) codeine [Codeine] Allergy (Verified 12/23/18 19:23) VOMITING dexlansoprazole [From Dexilant] Allergy (Verified 12/23/18 19:23) Facial swelling Shellfish * [Shellfish] Allergy (Verified 12/23/18 19:23) Swelling of hands and/or feet Qulgntd-Rpx-Mbe Reductase Inhibitor Allergy (Verified 12/23/18 19:23) Stiffness in joints clopidogrel [From Plavix] Adverse Reaction (Intermediate, Verified 12/23/18 19:23) LETHARGIC lisinopril Adverse Reaction (Verified 12/23/18 19:23) nateglinide [From Starlix] Adverse Reaction (Verified 12/23/18 19:23) VOMITING Past Medical History - Social History Frequency of alcohol use: None Drug Abuse: None - Past Medical History Cardiac Medical History: Reports: Hx Heart Attack - 2016, Hx Hypercholesterolemia, Hx Hypertension Pulmonary Medical History: Denies: Hx Asthma Neurological Medical History: Denies: Hx Cerebrovascular Accident, Hx Seizures Renal/ Medical History: Reports: Hx Kidney Stones. Denies: Hx Peritoneal Dialysis GI Medical History: Reports: Hx Gastroesophageal Reflux Disease, Hx Hiatal Hernia. Denies: Hx Hepatitis, Hx Ulcer Infectious Medical History: Denies: Hx Hepatitis Past Surgical History: Reports: Hx Appendectomy, Hx Cholecystectomy, Hx Genitourinary Surgery - Prolapsed bladder, Hx Open Heart Surgery - 2016, Hx Tonsillectomy, Hx Tubal Ligation. Denies: Hx Mastectomy, Hx Pacemaker - Immunizations Hx Diphtheria, Pertussis, Tetanus Vaccination: No - Pt unsure Physical Exam - Vital signs Vitals: Temp Pulse Resp BP Pulse Ox 98.6 F 66 25 H 173/72 H 95 06/29/19 03:56 06/29/19 03:56 06/29/19 03:56 06/29/19 03:56 06/29/19 03:56 - Cardiovascular Rhythm: Regular. No: Tachycardia Heart sounds: Normal auscultation, S1 appreciated, S2 appreciated - Abdominal Inspection: Normal Tenderness: Nontender Course - Re-evaluation Re-evalutation: I have greeted and performed a rapid initial assessment of this patient. A comprehensive ED assessment and evaluation of the patient, analysis of test results and completion of the medical decision making process will be conducted by additional ED providers. - Vital Signs Vital signs: Temp Pulse Resp BP Pulse Ox 98.6 F 66 27 H 173/72 H 95 06/29/19 03:56 06/29/19 03:56 06/29/19 04:25 06/29/19 04:25 06/29/19 04:25 - Laboratory Result Diagrams: 06/29/19 04:20 06/29/19 04:20 Doctor's Discharge - Discharge Referrals: KAYCEE SHIN PA-C [Primary Care Provider] - Follow up as needed
[2019-06-29 05:00] LABS: ALBUMIN 4.8 g/dL (3.5-5.0); ALKALINE PHOSPHATASE 117 U/L (38-126); ANION GAP 17 (5-19); ASPARTATE AMINO TRANSFERASE 28 U/L (14-36); BILIRUBIN,DIRECT 0.2 mg/dL (0.0-0.4); BILIRUBIN,TOTAL 0.4 mg/dL (0.2-1.3); BLOOD UREA NITROGEN 35 mg/dL (7-20); CALCIUM 10.4 mg/dL (8.4-10.2); CARBON DIOXIDE 21 mmol/L (22-30); CHLORIDE 102 mmol/L (98-107); CREATINE KINASE 41 U/L (30-135); GLUCOSE 236 mg/dL (75-110); POTASSIUM 3.8 mmol/L (3.6-5.0); TOTAL PROTEIN 8.9 g/dL (6.3-8.2)
[2019-06-29] MEDS ORDERED: LIDOCAINE 2% VISCOUS SOLN 20 ML UDCUP PO ONE (05:21)
[2019-06-29] MEDS ORDERED: MAG HYDROX/AL HYDROX/SIMETH SUSP 30 ML UDCUP PO ONE (05:21)
--- NOTE | 2019-06-29 05:56 | RADIOLOGY REPORT (SQ) ---
EXAM DESCRIPTION: XR CHEST 2 VIEWS COMPLETED DATE/TME: 06/29/2019 00:00 CLINICAL HISTORY: 74 years, Female, chest pain COMPARISON: 12/23/2018 NUMBER OF VIEWS: Two TECHNIQUE: Two views of the chest LIMITATIONS: None. FINDINGS: The lungs are clear. The heart is normal in size. There is no pneumothorax or pleural effusion. The bones are demineralized. Median sternotomy wires are noted. IMPRESSION: No acute cardiopulmonary abnormality copyright 2010 [employer]- All Rights Reserved
[2019-06-29] MEDS ORDERED: DIPHENHYDRAMINE HCL 50 MG/ML VIAL IV ONE (06:32)
[2019-06-29] MEDS ORDERED: PROCHLORPERAZINE EDISYLATE INJ 10 MG/2 ML VIAL IV ONE (06:32)
[2019-06-29 07:03] LABS: CREATINE KINASE MB 4.33 ng/mL (<4.55)
[2019-06-29 07:10] LABS: TROPONIN I 0.219 ng/mL
[2019-06-29] MEDS ORDERED: NITROGLYCERIN 2% OINTMENT 1 GM PACKET TP ONE (07:37)
[2019-06-29] MEDS ORDERED: ENOXAPARIN SODIUM INJ 80 MG/0.8 ML DISP.SYRIN SUBCUT ONE (07:38)
[2019-06-29] MEDS ORDERED: NORMAL SALINE 1000 ML 1,000 ML IV ONE (07:42)
--- NOTE | 2019-06-29 07:50 | ER Document Report ---
Entered by NEENA CASEY SCRIBE 06/29/19 0632 Acting as scribe for:YORDAN WASHINGTON MD ED General - General Chief Complaint: Chest Pain Stated Complaint: CHEST PAIN Time Seen by Provider: 06/29/19 04:41 Primary Care Provider: KAYCEE SHIN PA-C [Primary Care Provider] - Follow up as needed Mode of Arrival: Medic Information source: Patient, H Records Notes: This 74 year old woman with CAD and two vessel CABG in 2016 that presents to the ED today with complaints of chest pain that radiates to her arms, face, and scapular region of her back which began at 1:00AM. Patient notes that the chest pain comes and goes and is worse this time compared to when she had experienced it in the past. Patient states that for the past 4 months, she has been experiencing "head rushes" which accompanied the chest pain today, but adds this is the first time in these four months that she has had chest pain. TRAVEL OUTSIDE OF THE [place] IN LAST 30 DAYS: No - Related Data Allergies/Adverse Reactions: atorvastatin [From Lipitor] Allergy (Verified 12/23/18 19:23) codeine [Codeine] Allergy (Verified 12/23/18 19:23) VOMITING dexlansoprazole [From Dexilant] Allergy (Verified 12/23/18 19:23) Facial swelling Shellfish * [Shellfish] Allergy (Verified 12/23/18 19:23) Swelling of hands and/or feet Aduhzpd-Ajc-Sym Reductase Inhibitor Allergy (Verified 12/23/18 19:23) Stiffness in joints clopidogrel [From Plavix] Adverse Reaction (Intermediate, Verified 12/23/18 19:23) LETHARGIC lisinopril Adverse Reaction (Verified 12/23/18 19:23) nateglinide [From Starlix] Adverse Reaction (Verified 12/23/18 19:23) VOMITING Past Medical History - General Information source: Patient, [facility] Records - Social History Smoking Status: Former Smoker Frequency of alcohol use: None Drug Abuse: None Lives with: Family Family History: Reviewed & Not Pertinent Patient has suicidal ideation: No Patient has homicidal ideation: No - Past Medical History Cardiac Medical History: Reports: Hx Coronary Artery Disease, Hx Heart Attack - 2016, Hx Hypercholesterolemia, Hx Hypertension Renal/ Medical History: Reports: Hx Kidney Stones GI Medical History: Reports: Hx Gastroesophageal Reflux Disease, Hx Hiatal Hernia Past Surgical History: Reports: Hx Appendectomy, Hx Cholecystectomy, Hx Genitourinary Surgery - Prolapsed bladder, Hx Open Heart Surgery - 2016, two vessel, Hx Tonsillectomy, Hx Tubal Ligation - Immunizations Hx Diphtheria, Pertussis, Tetanus Vaccination: No - Pt unsure Hx Pneumococcal Vaccination: 07/26/14 Review of Systems - Review of Systems Constitutional: No symptoms reported EENT: No symptoms reported Cardiovascular: See HPI, Chest pain Respiratory: No symptoms reported Gastrointestinal: See HPI. denies: Nausea Genitourinary: No symptoms reported Female Genitourinary: No symptoms reported Musculoskeletal: See HPI, Other - arm, jaw, face, and scapular pain Skin: No symptoms reported Hematologic/Lymphatic: No symptoms reported Neurological/Psychological: See HPI, Other - "head mantilla" -: Yes All other systems reviewed and negative Physical Exam - Vital signs Vitals: Temp Pulse Resp BP Pulse Ox 98.6 F 66 25 H 173/72 H 95 06/29/19 03:56 06/29/19 03:56 06/29/19 03:56 06/29/19 03:56 06/29/19 03:56 Interpretation: Normal - General General appearance: Alert In distress: None - HEENT Head: Atraumatic, Tenderness - temporal muscles tender Eyes: Normal Pupils: PERRL Neck: Other - posterior cervical musculature tenderness - Respiratory Respiratory status: No respiratory distress - nontender in anterior chest wall Chest status: Nontender Breath sounds: Normal Chest palpation: Normal - Cardiovascular Rhythm: Regular Heart sounds: Normal auscultation Murmur: No - Abdominal Inspection: Normal Distension: No distension Bowel sounds: Normal Tenderness: Nontender Organomegaly: No organomegaly - Back Back: Tender - scapular muscles tender - Extremities General upper extremity: Normal inspection, Nontender, Normal color, Normal ROM, Normal temperature General lower extremity: Normal inspection, Nontender, Normal color, Normal ROM, Normal temperature, Normal weight bearing. No: Tommy's sign - Neurological Neuro grossly intact: Yes Cognition: Normal Speech: Normal - Psychological Associated symptoms: Normal affect, Normal mood - Skin Skin Temperature: Warm Skin Moisture: Dry Skin Color: Normal Course - Re-evaluation Re-evalutation: 06/29/19 07:15 Patient reports her head does feel little better after medication, but the chest still feels about the same. She is given 1 sublingual nitroglycerin at this time to see if that helps her chest pain. 06/29/19 07:16 Troponin is reported back from the lab on the third attempt, and is 0.219, this is in a positive range. 06/29/19 09:11 Repeat troponin increased to 0.676, patient remains pain-free at this time. Transportation is supposed to be here at 9:30 AM to take her to provide it. - Vital Signs Vital signs: Temp Pulse Resp BP Pulse Ox 97.7 F 60 21 H 113/62 94 06/29/19 09:57 06/29/19 09:57 06/29/19 09:57 06/29/19 09:57 06/29/19 09:57 - Laboratory Result Diagrams: 06/29/19 04:20 06/29/19 04:20 Laboratory results interpreted by me: 06/29/19 04:20 Carbon Dioxide 21 L BUN 35 H Est GFR ( Amer) 55 L Est GFR (MDRD) Non-Af 45 L Glucose 236 H Calcium 10.4 H Total Protein 8.9 H - Diagnostic Test Radiology reviewed: Image reviewed, Reports reviewed - CXR-No acute cardiopulmonary event. - EKG Interpretation by Me EKG shows normal: Sinus rhythm, [place], Intervals, QRS Complexes, ST-T Waves Rate: Normal - 55 [place]/QRS: RBBB Heart block present: 1st Degree When compared to previous EKG there are: Changes noted - Consults Dr. Blackmon Time consulted: 08:07 Consulted provider: other - Will accept at [facility] Critical Care Note - Critical Care Note Total time excluding time spent on procedures (mins): 45 Discharge - Discharge Clinical Impression: Elevated troponin I level, Non-STEMI (non-ST elevated myocardial infarction) Chest pain Qualifiers: Chest pain type: chest pain due to myocardial ischemia Ischemic chest pain type: unspecified angina pectoris type Qualified Code(s): I25.9 - Chronic ischemic heart disease, unspecified High blood pressure Qualifiers: Hypertension type: essential hypertension Qualified Code(s): I10 - Essential (primary) hypertension Tension type headache Qualifiers: Headache chronicity pattern: unspecified pattern Intractability: not intractable Qualified Code(s): G44.209 - Tension-type headache, unspecified, not intractable Condition: Stable Disposition: [facility] Referrals: KAYCEE SHIN PA-C [Primary Care Provider] - Follow up as needed Scribe Attestation: 06/29/19 07:41 I personally performed the services described in the documentation, reviewed and edited the documentation which was dictated to the scribe in my presence, and it accurately records my words and actions. I personally performed the services described in the documentation, reviewed and edited the documentation which was dictated to the scribe in my presence, and it accurately records my words and actions.
[2019-06-29 09:51] VITALS: BP 113/62
--- NOTE | 2019-06-29 19:14 | EKG REPORT ---
SEVERITY:- ABNORMAL ECG - SINUS RHYTHM FIRST DEGREE AV BLOCK RIGHT BUNDLE BRANCH BLOCK : Confirmed by: Millie Euceda MD 29-Jun-2019 19:13:51
== END 2019-06-29 09:57 | disposition short-term general hospital (02) ==
LOC: ER 03:56
DX: I21.4 Non-ST elevation (NSTEMI) myocardial infarction (principal); I25.9 Chronic ischemic heart disease, unspecified; G44.209 Tension-type headache, unspecified, not intractable; R07.9 Chest pain, unspecified; R68.84 Jaw pain; M79.603 Pain in arm, unspecified; M89.8X1 Other specified disorders of bone, shoulder; I25.10 Atherosclerotic heart disease of native coronary artery without angina pectoris; I45.10 Unspecified right bundle-branch block; I44.0 Atrioventricular block, first degree; I10 Essential (primary) hypertension; I25.2 Old myocardial infarction; Z95.1 Presence of aortocoronary bypass graft; Z87.891 Personal history of nicotine dependence; Z88.8 Allergy status to other drugs, medicaments and biological substances; Z88.6 Allergy status to analgesic agent; Z88.5 Allergy status to narcotic agent; Z91.013 Allergy to seafood
CPT/HCPCS: 93005; 99291; 96372; 96361; 96374; 96375; 36415; 82553; 82550; 85025; 80053; 84484; 71046; 93010; A9270 ×3; J1200; J3490; J0780; J2405; J7030; J1650

== ENCOUNTER → 2020-01-24 | Outpatient (CLI) | payer MEDICARE, OTHER ==
--- NOTE | 2020-01-24 17:30 | WOMENS IMAGING REPORT ---
EXAM DESCRIPTION: 3D SCREENING MAMMO BILAT IMAGES COMPLETED DATE/TIME: 01/24/2020 1:49 pm REASON FOR STUDY: Z12.31 ENCOUNTER FOR SCREENING MAMMOGRAM FOR MALIGNANT NEOPLASM OF BREAST Z12.31 ENCNTR SCREEN MAMMOGRAM FOR MALIGNANT NEOPLASM OF TONY COMPARISON: Multiple since 2008 EXAM PARAMETERS: Standard craniocaudal and mediolateral oblique views of each breast recorded using digital acquisition and breast tomosynthesis. Read with the assistance of CAD. .[facility] - [facility] [employer] Truing Inspector Version 9.2 LIMITATIONS: None. FINDINGS: RIGHT BREAST MASSES: No suspicious masses. CALCIFICATIONS: No new or suspicious calcifications. ARCHITECTURAL DISTORTION: None. ASYMMETRY: None noted. OTHER: No other significant findings. LEFT BREAST MASSES: In the left breast 12 to 2 o'clock position, about 3 to 4 cm from the nipple there are 2 low- density mammographic masses. These require further evaluation with cone compression in the CC and ML O orientations, left breast 90 mediolateral view, and ultrasound CALCIFICATIONS: No new or suspicious calcifications. ARCHITECTURAL DISTORTION: None. ASYMMETRY: None noted. OTHER: No other significant findings. IMPRESSION: Left breast mammographic masses for which additional diagnostic mammograms and ultrasoun d are recommended 0 Incomplete: Needs Additional Imaging Evaluation and/or prior Mammograms for Comparison. BREAST DENSITY: b. There are scattered areas of fibroglandular density. BIRAD: ASSESSMENT: 0 Incomplete: Needs Additional Imaging Evaluation and/or prior Mammograms for C omparison. RECOMMENDATION: RECOMMENDED FOLLOW-UP: Left breast diagnostic mammograms and ultrasound The patient will be contacted for additional imaging. COMMENT: The patient has been notified of the results by letter per MQSA requirements. Additional no tification policies are in place for contacting patient with suspicious or incomplete findings. Quality ID #225: The [employer] recommends an annual screening mammogram for women aged 40 years or over. This facility utilizes a reminder system to ensure that all patients receive reminder letters, and/or direct phone calls for appointments. This includes reminders for routine scr eening mammograms, diagnostic mammograms, or other Breast Imaging Interventions when appropriate. Th is patient will be placed in the appropriate reminder system. TECHNICAL DOCUMENTATION: FINDING NUMBER: (1) ASSESSMENT: (1) JOB ID: [id number] 2010 [employer]- All Rights Reserved Reading location - IP/workstation name: [email or web address]
== END ==
LOC: WI 13:22
PROVIDERS: ATTEND Physician Assistant
DX: Z12.31 Encounter for screening mammogram for malignant neoplasm of breast (principal); N63.20 Unspecified lump in the left breast, unspecified quadrant
CPT/HCPCS: 77063; 77067

== ENCOUNTER → 2020-02-05 | Outpatient (CLI) | payer MEDICARE, OTHER ==
--- NOTE | 2020-02-05 12:27 | WOMENS IMAGING REPORT ---
EXAM DESCRIPTION: LEFT DIAGNOSTIC MAMMO W/CAD; U/S BREAST UNILAT LIMITED IMAGES COMPLETED DATE/TIME: 02/05/2020 10:24 am; 02/05/2020 10:43 am REASON FOR STUDY: R92.2 INCONCLUSIVE MAMMOGRAM; LT BREAST R92.2 R92.2 INCONCLUSIVE MAMMOGRAM COMPARISON: Mammograms 01/24/2020 EXAM PARAMETERS: Cone compression craniocaudal and mediolateral oblique images of the breast recorde d with digital acquisition. Left breast 90 mediolateral view Left breast ultrasound was also performed Read with the assistance of CAD. .[facility] - [employer] Manager Of Compliance Version 9.2 LIMITATIONS: None. FINDINGS: BREAST LATERALITY: left MASSES: Persistent 7 mm well-circumscribed low-density mammographic mass in the left central retroare olar region 1 to 2 o'clock position. Less than 5 mm well-circumscribed low-density mammographic mass in the central retroareolar region CALCIFICATIONS: No new or suspicious calcifications. ARCHITECTURAL DISTORTION: None. ASYMMETRY: None noted. OTHER: No other significant findings. Left breast ultrasound: Ultrasound left breast demonstrates a cluster of cysts 8 x 7 x 5 mm in diameter at the 2 o'clock posi tion retroareolar region. This correlates with the mammographic masses described 02/05/2020, 01/24/2020 mammograms. This is benign. Left breast ultrasound also demonstrates a 4 x 3 mm anechoic cyst in the central retroareolar region which correlates with a second low-density well-circumscribed mammographic mass on today's mammograms . IMPRESSION: Benign findings left breast BI-RADS 2 BREAST DENSITY: b. There are scattered areas of fibroglandular density. BIRAD: ASSESSMENT: 2 Benign findings. RECOMMENDATION: RECOMMENDED FOLLOW UP: Please continue yearly bilateral screening mammography/tomosy nthesis January 2021 SPECIFIC INTERVENTION/IMAGING/CONSULTATION RECOMMENDED:No additional intervention/ imaging/consultati on needed at this time. COMMUNICATION:Patient notified by letter COMMENT: The patient has been notified of the results by letter per MQSA requirements. Additional no tification policies are in place for contacting patient with suspicious or incomplete findings. Quality ID #225: The [employer] recommends an annual screening mammogram for women aged 40 years or over. This facility utilizes a reminder system to ensure that all patients receive reminder letters, and/or direct phone calls for appointments. This includes reminders for routine scr eening mammograms, diagnostic mammograms, or other Breast Imaging Interventions when appropriate. Th is patient will be placed in the appropriate reminder system. TECHNICAL DOCUMENTATION: FINDING NUMBER: (1) ASSESSMENT: (1) JOB ID: [id number] 2010 [employer]- All Rights Reserved Reading location - IP/workstation name: [email or web address]
--- NOTE | 2020-02-05 12:27 | WOMENS IMAGING REPORT ---
EXAM DESCRIPTION: LEFT DIAGNOSTIC MAMMO W/CAD; U/S BREAST UNILAT LIMITED IMAGES COMPLETED DATE/TIME: 02/05/2020 10:24 am; 02/05/2020 10:43 am REASON FOR STUDY: R92.2 INCONCLUSIVE MAMMOGRAM; LT BREAST R92.2 R92.2 INCONCLUSIVE MAMMOGRAM COMPARISON: Mammograms 01/24/2020 EXAM PARAMETERS: Cone compression craniocaudal and mediolateral oblique images of the breast recorde d with digital acquisition. Left breast 90 mediolateral view Left breast ultrasound was also performed Read with the assistance of CAD. .[facility] - R2 [employer] Manager Version 9.2 LIMITATIONS: None. FINDINGS: BREAST LATERALITY: left MASSES: Persistent 7 mm well-circumscribed low-density mammographic mass in the left central retroare olar region 1 to 2 o'clock position. Less than 5 mm well-circumscribed low-density mammographic mass in the central retroareolar region CALCIFICATIONS: No new or suspicious calcifications. ARCHITECTURAL DISTORTION: None. ASYMMETRY: None noted. OTHER: No other significant findings. Left breast ultrasound: Ultrasound left breast demonstrates a cluster of cysts 8 x 7 x 5 mm in diameter at the 2 o'clock posi tion retroareolar region. This correlates with the mammographic masses described 02/05/2020, 01/24/2020 mammograms. This is benign. Left breast ultrasound also demonstrates a 4 x 3 mm anechoic cyst in the central retroareolar region which correlates with a second low-density well-circumscribed mammographic mass on today's mammograms . IMPRESSION: Benign findings left breast BI-RADS 2 BREAST DENSITY: b. There are scattered areas of fibroglandular density. BIRAD: ASSESSMENT: 2 Benign findings. RECOMMENDATION: RECOMMENDED FOLLOW UP: Please continue yearly bilateral screening mammography/tomosy nthesis January 2021 SPECIFIC INTERVENTION/IMAGING/CONSULTATION RECOMMENDED:No additional intervention/ imaging/consultati on needed at this time. COMMUNICATION:Patient notified by letter COMMENT: The patient has been notified of the results by letter per MQSA requirements. Additional no tification policies are in place for contacting patient with suspicious or incomplete findings. Quality ID #[id number]: The [employer] recommends an annual screening mammogram for women aged 40 years or over. This facility utilizes a reminder system to ensure that all patients receive reminder letters, and/or direct phone calls for appointments. This includes reminders for routine scr eening mammograms, diagnostic mammograms, or other Breast Imaging Interventions when appropriate. Th is patient will be placed in the appropriate reminder system. TECHNICAL DOCUMENTATION: FINDING NUMBER: (1) ASSESSMENT: (1) JOB ID: [id number] 2010 [employer]- All Rights Reserved Reading location - IP/workstation name: [email or web address]
== END ==
LOC: WI 09:55
PROVIDERS: ATTEND Physician Assistant
DX: N60.02 Solitary cyst of left breast (principal)
CPT/HCPCS: 76642; 77065